=== PATIENT | female | born 1980 | race African-American/Black ===

== ENCOUNTER 2016-05-09 12:04 | Inpatient (IN) | payer MEDICAID ==
[2013-11-09 02:23] VITALS: BMI 41.9
[2016-05-09] MEDS ORDERED: LR 500 ML IV PRN (12:31)
[2016-05-09] MEDS ORDERED: BUTORPHANOL 1 MG/ML VIAL IV PRN (12:31)
[2016-05-09 12:38] LABS: AUTOMATED BASOPHIL 0.4 % (0-2); AUTOMATED EOSINOPHIL 0.7 % (0-5); AUTOMATED LYMPH 19.7 % (17-44); AUTOMATED MONOCYTE 7.8 % (3-10); AUTOMATED NEUTROPHIL 71.4 % (45-76)
--- NOTE | 2016-05-09 12:40 | HISTPHYS ---
- HISTORY OF PRESENT ILLNESS Age: 35 Estimated Due Date: 05/17/16 Gestational Age: 37 : 7 Para: 3 Patient Presents to:: Labor & Delivery Presents for:: Contractions Current : Diabetes (Diet controlled), GBS - - REVIEW OF SYSTEMS Reports/Denies: Reports: Contractions (Strong and regular), Movement ( Normal). Denies: Vaginal Bleeding, Leaking Fluid Pain: Reports: Abdominal, Back - ALLERGIES Allergies Allergy/AdvReac Type Severity Reaction Status Date / Time Penicillins Allergy Hives* Verified 11/09/13 06:18 - PAST MEDICAL HISTORY Reports: No Significant History - PAST SURGICAL HISTORY Reports: None - FAMILY HISTORY Family History: Noncontributory - SOCIAL HISTORY Travel Outside of [place] in the Last 3 Months?: No Smoking Status: Never smoker Social History: Denies: Alcohol Use Marital Status: Single (Never ) - GENITOURINARY HISTORY Gynecologic History: Reports: None Hx Multiple Births: No 1 Delivery Type: Vaginal Weight: 8 9 2 Delivery Type: Vaginal Weight: 6 9 3 Complications with or Delivery: Reports: SAB/Miscarriage /Delivery Problems Comment (if applicable): SAB 4 Complications with or Delivery: Reports: SAB/Miscarriage /Delivery Problems Comment (if applicable): SAB 5 Complications with or Delivery: Reports: SAB/Miscarriage /Delivery Problems Comment (if applicable): SAB - PHYSICAL EXAM Vital Signs:: Temperature: () HR: () RR: () BP: () Pulse Ox: () GENERAL: Alert, Oriented, Distress (moderate) ABDOMEN: Gravid, Non-Distended, Non-Tender, Soft Fundal Height (cm): 39 GENITOURINARY: Normal. negative: Lesions, Mass, Rash, Swelling, Discharge MUSCULOSKELETAL: Normal. negative: Atrophy EXTERMITIES: Moves All Extremeties. negative: Pain/Tenderness Dilation (cm): 10 Effacement (%): 100 Station: -3 Moderate Variability Contractions: Regular Membranes: AROM Amniotic Fluid: Clear - ASSESSMENT (ACTIVE PROBLEMS) (1) Active labor at term Acute [id number] - (2) 38 weeks gestation of Acute Z3A.38 - 38 WEEKS GESTATION OF (3) Gestational diabetes Acute O24.419 - GESTATIONAL DIABETES MELLITUS IN , UNSP CONTROL - PLAN Admit, Monitor Blood Sugars, Pain Management
[2016-05-09] MEDS ORDERED: LR 1,000 ML IV SCH ×2 (13:00→20:38)
[2016-05-09] MEDS ORDERED: BISACODYL 10 MG SUPP PR PRN (13:59)
[2016-05-09] MEDS ORDERED: OXYTOCIN 1,000 ML IV ONE ×2 (13:59→14:15)
[2016-05-09] MEDS ORDERED: HYDROCORTISONE 25 MG SUPP PR PRN (13:59)
[2016-05-09] MEDS ORDERED: LANOLIN OINTMENT 0.25 OZ TUBE TOP PRN (13:59)
[2016-05-09] MEDS ORDERED: OXYCODONE HCL 5 MG TABLET PO PRN (13:59)
[2016-05-09] MEDS ORDERED: ACETAMINOPHEN 325 MG/TAB TABLET PO PRN (13:59)
[2016-05-09] MEDS ORDERED: DIBUCAINE OINTMENT 1 OZ TUBE TOP PRN (13:59)
[2016-05-09] MEDS ORDERED: SODIUM CHLORIDE 0.9% 3 ML FLUSH FLUSH PRN (13:59)
[2016-05-09] MEDS ORDERED: Pharmacy Order Set Alert SCH (14:00)
--- NOTE | 2016-05-09 14:01 | OBDELNOTE ---
Delivery Note - Problem/Diagnosis (1) 38 weeks gestation of Status: Acute (2) Gestational diabetes Status: Acute (3) Vaginal delivery Status: Acute - Admitting Diagnosis Admission Date: 05/09/16 Admission time: 12:00 Gestational Age: 38 - Procedures Procedure(s): None Labor Anesthesia/Analgesia: None Date: 05/09/16 Time: 01:30 Spontaneous Vaginal Delivery Presentation: Vertex Episiotomy: None Laceration: 1st Degree Perineal Repair Agent: 3-0 Chromic Fluid: Clear, Yellow Description: Normal - Procedures Procedures: None - Infant Data Order: Reddy Infant Sex: Male Weight: 2.977 kg (1min): 8 (5min): 9 Feeding Plans for : Breast Plans Circumcision: No [place] Complications: No Complications [place] to:: LDRP/Mother's Room - /Operative Complications /Op Complications: None Discharge Planning - REASON FOR ADMISSION Patient Presents to:: Labor & Delivery Reason for Visit: Contractions - DISCHARGE INSTRUCTIONS Prescriptions: Hydrocodone Bit/Acetaminophen [Lortab 5/325] 1 - 2 tab PO Q4H PRN #30 tab PRN Reason: Pain Ibuprofen Tablet [Motrin] 800 mg PO Q6-8H PRN #30 tab PRN Reason: Pain
--- NOTE | 2016-05-09 14:03 | PCM.DCS92 ---
<Mayco Mauricio - Last Filed: 05/09/16 14:01> - Primary/Secondary Discharge Diagnoses (1) 38 weeks gestation of Acute Z3A.38 - 38 WEEKS GESTATION OF Present on Admission: Yes (2) Gestational diabetes Acute O24.419 - GESTATIONAL DIABETES MELLITUS IN , UNSP CONTROL Present on Admission: Yes G T (3) Vaginal delivery Acute [id number] - Present on Admission: No - HOSPITAL COURSE /Op Complications: None - DISCHARGE INSTRUCTIONS Discharge Disposition: Home Discharge Condition: Good Cognitive Discharge Status: Unimpaired Fuctional Discharge Status: Independent Patient Leaving with Prescriptions?: Yes Home Medications/ New Prescriptions: New Hydrocodone Bit/Acetaminophen [Lortab 5/325] 1 - 2 tab PO Q4H PRN #30 tab PRN Reason: Pain Ibuprofen Tablet [Motrin] 800 mg PO Q6-8H PRN #30 tab PRN Reason: Pain Continue Vits W-Ca,Fe,FA(<1Mg) [] 1 each PO DAILY Discontinued Ibuprofen 800 mg PO Q6-8H #60 tablet Hydrocodone Bit/Acetaminophen [[place] 5-325 Tablet] 1 - 2 tab PO Q4H PRN #30 tab PRN Reason: Pain Forms: Patient Discharge Instructions Referrals: Mayco Mauricio MD [Staff Physician] - 06/18/16 10:00 am - Diet Diet at Discharge: Regular - Activity Activity: No Heavy Lifting, Pelvic Rest, No Driving No Driving for: While using pain medications - Instructions Call Physician for: Severe Abdominal Cramps, Foul Smelling Discharge, Pain/ Redness in Calf/Leg, Soaking Pad in 1 hr, Temperature Above 100.4 - Incision Incision, Lacerations, or Tears: Yes - DC Summary Notes Discharge Medications: *See "Discharge Medication List" for a complete list of Home Medications and Discharge Medications.* Obstetric Hospital Course - Admitting Diagnosis Admission Date: 05/09/16 Admission time: 12:00 Gestational Age: 38 - Procedures Procedure(s): None Labor Anesthesia/Analgesia: None Date: 05/09/16 Time: 01:30 Spontaneous Vaginal Delivery Presentation: Vertex Episiotomy: None Laceration: 1st Degree Perineal Repair Agent: 3-0 Chromic Fluid: Clear, Yellow Description: Normal - Procedures Procedures: None - Infant Data Order: Reddy Infant Sex: Male Weight: 2.977 kg (1min): 8 (5min): 9 Feeding Plans for : Breast Plans Circumcision: No [place] Complications: No Complications [place] to:: LDRP/Mother's Room - /Operative Complications /Op Complications: None <Kimberlyn Shah - Last Filed: 05/10/16 09:12> - Primary/Secondary Discharge Diagnoses (1) care following vaginal delivery Acute Z39.2 - ENCOUNTER FOR ROUTINE FOLLOW-UP - DC Summary Notes Discharge Medications: *See "Discharge Medication List" for a complete list of Home Medications and Discharge Medications.*
[2016-05-09] MEDS ORDERED: LIDOCAINE 1% 30 ML VIAL (PRESERVATIVE FREE) ONE (14:15)
[2016-05-09] MEDS: IBUPROFEN 800 MG TAB PO SCH ×2 (14:27→22:05)
[2016-05-09] MEDS ORDERED: Vaccine Screening Complete SCH (16:00)
[2016-05-09] MEDS ORDERED: HYDROCODONE 5 MG/ACETAMIN 325 MG TAB PO PRN (17:33)
[2016-05-09] MEDS ORDERED: SODIUM CHLORIDE 0.9% 3 ML FLUSH FLUSH SCH (18:00)
[2016-05-09] MEDS: HYDROCODONE 5 MG/ACETAMIN 325 MG TAB PO PRN ×2 (19:32→23:58)
[2016-05-09] MEDS: DOCUSATE-SENNA CONCENTRATE TAB PO SCH (19:32)
[2016-05-10] MEDS: IBUPROFEN 800 MG TAB PO SCH ×3 (04:49→18:21)
[2016-05-10] MEDS: HYDROCODONE 5 MG/ACETAMIN 325 MG TAB PO PRN ×4 (04:49→18:21)
[2016-05-10] MEDS: DOCUSATE-SENNA CONCENTRATE TAB PO SCH (08:45)
--- NOTE | 2016-05-10 09:10 | OBGYNPROG ---
- Subjective Post Day: 1 Reports: Ambulating, Out of Bed, Tolerating Regular Diet, Voiding Freely, Moderate Lochia, Well. Denies: Complaints, Nausea, Vomitting, Chest Pain, Shortness of Breath Pain: Reports: Well Managed - Objective Vital Signs: Last Vital Signs Temp 98.1 F 05/10/16 06:22 Pulse 83 05/10/16 06:22 Resp 20 05/10/16 06:22 BP 134/65 05/10/16 06:22 Pulse Ox General: Alert, Oriented, No Acute Distress ABDOMEN: Non-Distended, Non-Tender, Soft Fundus: U - 1, Firm Bladder: Voiding & Emptying OBGYN Progress Note Progress Note: Laboratory Results - last 24 hr 05/09/16 05/09/16 05/10/16 12:10 12:10 06:41 WBC 11.4 H RBC 4.67 Hgb 12.6 11.4 L Hct 37.8 34.7 L MCV 81 MCH 27.1 MCHC 33.4 RDW 14.5 Plt Count 198 MPV 11.0 H Neut % (Auto) 71.4 Lymph % (Auto) 19.7 [place] % (Auto) 7.8 Eos % (Auto) 0.7 Baso % (Auto) 0.4 Absolute Neuts (auto) 8.09 Absolute Lymphs (auto) 2.17 Blood Type O POSITIVE - ASSESSMENT (1) care following vaginal delivery Status: Acute Code(s): Z39.2 - ENCOUNTER FOR ROUTINE FOLLOW-UP - PLAN Routine Care, Discharge
[2016-05-10 18:27] VITALS: BP 136/72; PULSE 88; TEMP 98
== END 2016-05-10 20:31 | disposition home or self-care (01) | DRG 775 ==
LOC: LD 12:04 → MASU 12:09
PROVIDERS: ADMIT Obstetrics & Gynecology; ATTEND Obstetrics & Gynecology
PROC: 10E0XZZ Delivery of Products of Conception, External Approach (ICD-10-PCS; principal; 2016-05-09)
PROC: 0HQ9XZZ Repair Perineum Skin, External Approach (ICD-10-PCS; 2016-05-09)
DX: O24.420 Gestational diabetes mellitus in childbirth, diet controlled (principal); O70.0 First degree perineal laceration during delivery; Z3A.38 38 weeks gestation of pregnancy; Z37.0 Single live birth
CPT/HCPCS: 59400; 85014; 85018; 85025; 86592; 86900; 86901; 96360; J2001; J2590; J3490